=== PATIENT | female | born 1975 | race Two or more races ===

== ENCOUNTER 2023-12-19 17:54 | Emergency (ER) | payer MEDICAID, SELFPAY ==
[2023-12-19 18:25] VITALS: BP 114/78; PULSE 99; RESP 18; TEMP 37.6; O2SAT 95; BMI 32.1
--- NOTE | 2023-12-19 18:29 | PD.EDRME ---
Rapid Medical Screening Exam [facility] Arrival date/time: 12/19/23 17:54 48-year-old female with a history of hyperlipidemia hypertension hypothyroidism type 2 diabetes presents to the emergency room with a chief complaint of 10 out of 10 epigastric pain that radiates to the right upper quadrant. Patient states she had a cholecystectomy after there was obstruction. She was seen at her [facility] in which they removed the stent yesterday. Patient states that since removal of the stent she has had fever chills and abdominal pain I have greeted and performed a focused initial assessment of this patient. A comprehensive ED assessment and evaluation of the patient, analysis of all test results, and completion of the medical decision making process will be conducted by additional ED providers. Chief Complaint: Chest Pain Vital signs: Vital Signs Temperature 99.7 F 12/19/23 18:25 Pulse Rate 99 12/19/23 18:25 Respiratory Rate 18 12/19/23 18:25 Blood Pressure 114/78 12/19/23 18:25 Pulse Oximetry (%) 95 12/19/23 18:25 Oxygen Delivery Method Room Air 12/19/23 18:25 Vital signs reviewed by provider: Yes
--- NOTE | 2023-12-19 18:39 | EKG_ITS ---
[facility] Test Date: 2023-12-19 Pat Name: CHRISTA GOLDSMITH Department: Room: - Gender: Female [employer]: : [id number] Requested By: Chuck Tidwell Order Number: [id number] Reading MD: Chuck Tidwell Measurements Intervals [place] Rate: 100 P: 34 NE: 161 QRS: -5 QRSD: 110 T: 29 QT: 325 QTc: 419 Interpretive Statements SINUS TACHYCARDIA LOW QRS VOLTAGE IN PRECORDIAL LEADS [QRS DEFLECTION < 1.0 mV IN CHEST LEADS] ABNORMAL RHYTHM ECG Compared to ECG 08/26/2023 08:51:39 Low QRS voltage now present Sinus rhythm no longer present /store/S0/[id number]/[id number].pdf
--- NOTE | 2023-12-19 18:39 | XR_ITS ---
Examination: CT abdomen and pelvis without contrast. Coronal 3-D reconstructions. Sagittal 2-D reconstructions. Date and time of exam:December 19, 20232026 hrs. Comparison August 26, 2023 Indications: Abdominal pain chills and fever today CTDI: vol (mGy): 11.01 DLP: (mGycm): 704 Technique: Axial images of the abdomen have been obtained, 3 mm slice thickness Intravenous contrast material has not been administered. Low dose protocols were performed. One or more of the following dose reduction techniques were used; automated exposure control, adjustment of the mA and/or KV according to patient size, use of iterative reconstruction technique. Findings: No focal liver or splenic lesion, hepatomegaly 19 cm splenomegaly 13 cm Lung bases are clear No pancreatic or adrenal mass No renal or ureteral calculi, no hydronephrosis Aorta normal size No pericecal inflammatory change No bowel obstruction No diverticulitis Anteverted uterus, no pelvic mass Urinary bladder intact Osseous structures intact Impression: No renal or ureteral calculi, no hydronephrosis No CT findings of appendicitis bowel obstruction or diverticulitis No abdominal or pelvic abscess
[2023-12-19 19:36] LABS: Basophils % (Auto) 0 % (0-2.5); Eosinophils # (Auto) 0.1 Thou/mm3 (0.0-0.5); Eosinophils % (Auto) 1 % (0-10); Hematocrit 32.2 % (36.0-46.0); Hemoglobin 10.1 g/dL (12.0-16.0); Immature Granulocytes % (Auto) 0 % (0-0); Immature Granulocytes Auto 0.02 Thou/mm3 (0.00-0.00); Lymphocytes # (Auto) 0.7 Thou/mm3 (1.0-4.8); Lymphocytes % (Auto) 8 % (10-50); Mean Corpuscular HGB Conc 31.4 g/dl (31.0-37.0); Mean Corpuscular Hemoglobin 23.7 pg (25.0-35.0); Mean Corpuscular Volume 75 fL (80-100); Monocytes # (Auto) 0.7 Thou/mm3 (0.0-0.8); Monocytes % (Auto) 8 % (0-12); Neutrophils # (Auto) 6.7 Thou/mm3 (1.8-7.7); Neutrophils % (Auto) 83 % (37-80); Nucleated Red Blood Cell % 0 /100 WBC (0); Platelet Count 280 Thou/mm3 (140-440); RDW Standard Deviation 39.9 fL (36.4-46.3); Red Blood Count 4.27 Miln/mm3 (4.00-5.20); White Blood Count 8.1 Thou/mm3 (3.6-11.0)
[2023-12-19 19:39] LABS: Collection Type, Urine Clean Catch
[2023-12-19 19:51] LABS: B-Type Natriuretic Peptide 57 pg/mL (0-100)
[2023-12-19 19:53] LABS: Alanine Aminotransferase 477 U/L (10-49); Albumin, Serum 4.3 gm/dL (3.5-5.0); Albumin/Globulin Ratio 1.3 (1.2-2.2); Alkaline Phosphatase 367 U/L (46-116); Anion Gap 7 (7-16); Aspartate Amino Transferase 204 U/L (0-34); BUN/Creatinine Ratio 9 Ratio (12-20); Blood Urea Nitrogen 7 mg/dL (9-23); Calcium 9.9 mg/dL (8.3-10.6); Calcium (Corrected) 9.9 mg/dL (8.5-10.1); Carbon Dioxide 24.8 mMol/L (20.0-31.0); Chloride 102 mMol/L (98-107); Creatinine (Component) 0.8 mg/dL (0.6-1.3); Estimated Creatinine Clearance 101.8 mL/min (>60); Globulin 3.2 gm/dL (2.3-3.5); Glucose 283 mg/dL (74-106); Lipase 37 U/L (12-53); Osmolality,Calculated 276 (275-295); Potassium 3.7 mMol/L (3.4-5.1); Sodium 134 mMol/L (136-145); Total Protein 7.5 gm/dL (5.7-8.2); Troponin I < 0.002 ng/mL (0.0-0.045); eGFR > 60 See Note
[2023-12-19 20:03] LABS: HCG Qualitative,Urine Negative
[2023-12-19 20:07] LABS: Bacteria,Urine Rare; Bilirubin,Urine 1+ (Negative); Blood,Urine Negative (Negative); Clarity,Urine Clear (Clear/Hazy); Color,Urine Yellow (Lt Yel-Yel); Glucose, Urine 4+ (Negative); Ketones,Urine 1+ (Negative); Leukocyte Esterase,Urine Negative (Negative); Nitrite,Urine Negative (Negative); Protein,Urine 1+ (Neg - Trace); RBC,Urine 4 /hpf (0-3); Specific Gravity,Urine 1.034 (1.001-1.035); Squamous Epithelial Cell,Urine < 1 /hpf (0-5); WBC,Urine 1 /hpf (0-5)
[2023-12-19 22:32] VITALS: BP 116/77; PULSE 100; RESP 18; TEMP 37.6; O2SAT 95
[2023-12-19 23:37] LABS: Troponin I < 0.002 ng/mL (0.0-0.045)
--- NOTE | 2023-12-20 | XR_ITS ---
MRI abdomen, without contrast. MRCP Date and time of exam: December 20, 2023 0726 hours INDICATIONS: Epigastric pain, postcholecystectomy, post stent placement Technique: Multiple axial and coronal images of the abdomen have been obtained with the Siemens 1.5T MRI scanner. Images obtained included T1 weighted transverse images, T2-weighted transverse images, T2-weighted transverse images fat-suppressed, T2 weighted haste fat suppressed transverse images, T1 weighted images, in and out of phase images, T2-weighted coronal images, breath hold, T2 weighted haze coronal images as well as T2 weighted coronal thick slab images, MRCP. Findings: Hepatomegaly 19 cm Absent gallbladder Common hepatic duct 4 mm No common hepatic or common bile duct stones Negative for pancreatitis Pancreatic duct is not dilated Spleen is not enlarged No hydronephrosis Aorta normal size IMPRESSION: No common hepatic or common bile duct stones noted
--- NOTE | 2023-12-20 01:17 | XR_ITS ---
Examination: Abdomen sonogram, Limited Date and time of exam: December 20, 2023 0259 hrs. Indication: Chest pain epigastric pain beginning 2 days ago, history stone in the common bile duct removed 3 days ago with stent placement Technique: Real-time lowe scale transabdominal sonographic images of the upper abdomen obtained. Findings: Absent gallbladder Common bile duct 0.9 cm probable stent Pancreatic head 3.1 cm Liver 21.76 fatty infiltration no focal liver lesions Normal hepatopedal portal venous flow Patent IVC Impression: Echogenicity is present in the enlarged common bile duct Recommend MRCP follow-up to assess whether there are stones in addition to a stent in the common bile duct
[2023-12-20 01:38] VITALS: BP 106/65; PULSE 83; RESP 17; TEMP 37.5; O2SAT 96
[2023-12-20 03:36] VITALS: BP 114/78; PULSE 73; RESP 18; TEMP 37.1; O2SAT 96
--- NOTE | 2023-12-20 04:31 | PRELIM_ITS ---
Right upper quadrant abdominal ultrasound with doppler and wave doppler spectral analysis. November at 0259 hours Clinical history: Rule out retained stone. Technique: Grayscale and color flow i mages of the right upper quadrant are provided. Hepatic and portal veins were also imaged with color flow images. Comparison: No prior study is available for comparison. Findings:The liver is enlarged a nd demonstrates increased echogenicity. No intrahepatic biliary ductal dilatation. Status post cholec ystectomy. The common bile duct is dilated in caliber at 8.7 mm. Stone versus stent within the CBD. T he pancreas is unremarkable to the extent visualized. The right kidney is within normal limits. There is no hydronephrosis and the corticomedullary differentiation is maintained.The portal vein is paten t with hepatopetal flow and normal wave Doppler spectral analysis.The hepatic veins are patent.Impres david:Stone versus stent within the CBD, consider correlation with MRCP and/or CT.Hepatomegaly associa lizzette with liver steatosis is suspicious for steatohepatitis. Report Electronically Signed By: Suleman Apodaca 12/20/2023 4:30:14 AM [EST]
[2023-12-20 05:49] VITALS: BP 122/70; PULSE 83; RESP 19; TEMP 36.6; O2SAT 95
--- NOTE | 2023-12-20 06:46 | PD.EDADDENDU ---
Emergency Room Addendum <Hafsa Scott - Last Filed: 12/20/23 10:48> Addendum Narrative: 0600: Care assumed from Dr. Crawford, the previous shift emergency physician. Past medical, surgical, social and family history reviewed. Vitals and home medications reviewed. Patient evidently had a cholecystectomy performed last year and today LFT's are elevated. MRCP is pending to rule out CBD stones. Please refer to the emergency department record for history and examination from initial visit.? Nursing notes reviewed by me. Vital signs reviewed by me. [place] medical records reviewed by me. RADIOLOGY Ordering Physician: Chuck Lai Date of Service: 12/20/23 Procedure(s): MR MRCP Accession Number(s): [id number] cc: Chuck Lai; Gonzales Wise MD; Adonis Schwarz MD~ MRI abdomen, without contrast. MRCP Date and time of exam: December 20, 2023 0726 hours INDICATIONS: Epigastric pain, postcholecystectomy, post stent placement Technique: Multiple axial and coronal images of the abdomen have been obtained with the Siemens 1.5T MRI scanner. Images obtained included T1 weighted transverse images, T2-weighted transverse images, T2-weighted transverse images fat-suppressed, T2 weighted haste fat suppressed transverse images, T1 weighted images, in and out of phase images, T2-weighted coronal images, breath hold, T2 weighted haze coronal images as well as T2 weighted coronal thick slab images, MRCP. Findings: Hepatomegaly 19 cm Absent gallbladder Common hepatic duct 4 mm No common hepatic or common bile duct stones Negative for pancreatitis Pancreatic duct is not dilated Spleen is not enlarged No hydronephrosis Aorta normal size IMPRESSION: No common hepatic or common bile duct stones noted Dictated By: Adonis Schwarz MD Signed By: <Electronically signed by Adonis Schwarz MD in OV> 12/20/23 0936 <Zhang Dickinson MD - Last Filed: 12/20/23 10:54> Addendum Narrative: 0600: Care assumed from Dr. Crawford, the previous shift emergency physician. Past medical, surgical, social and family history reviewed. Vitals and home medications reviewed. Patient evidently had a cholecystectomy performed last year and today LFT's are elevated. MRCP is pending to rule out CBD stones. Please refer to the emergency department record for history and examination from initial visit.? Patient was signed out 0600 hrs. as someone with epigastric pain who had an ultrasound with and a previous cholecystectomy. A review of the chart reveals patient has a mild anemia of 10.1 which is microcytic indices with a MCV of 75. AST was 204 ALT was 477. Total bilirubin was 1.0. Alkaline phosphatase was elevated 367. Note a noncontrast CT of the abdomen pelvis came back negative urine is not clean-catch specimen with a specific already of 1034 and there is 4+ glucose present and obviously the patient needs better glycemic control. Hepatitis panel came back negative CT scan did comment on the hip hepatomegaly of 19 cm and splenomegaly of 13 etiology unknown. Otherwise the CT report was negative. Had a discussion with the patient at 1045 hrs. explained the results and told her she needs to follow with a regular doctor to address the enlarged liver and spleen and the elevated transaminases. Patient understands will follow-up. Also knows return if getting worse in any way. Notes the time of discharge patient is soft and benign belly vital signs are stable and patient is comfortable. Nursing notes reviewed by me. Vital signs reviewed by me. [place] medical records reviewed by me. RADIOLOGY Ordering Physician: Chuck Lai Date of Service: 12/20/23 Procedure(s): MR MRCP Accession Number(s): [id number] cc: Chuck Lai; Gonzales Wise MD; Adonis Schwarz MD~ MRI abdomen, without contrast. MRCP Date and time of exam: December 20, 2023 0726 hours INDICATIONS: Epigastric pain, postcholecystectomy, post stent placement Technique: Multiple axial and coronal images of the abdomen have been obtained with the Siemens 1.5T MRI scanner. Images obtained included T1 weighted transverse images, T2-weighted transverse images, T2-weighted transverse images fat-suppressed, T2 weighted haste fat suppressed transverse images, T1 weighted images, in and out of phase images, T2-weighted coronal images, breath hold, T2 weighted haze coronal images as well as T2 weighted coronal thick slab images, MRCP. Findings: Hepatomegaly 19 cm Absent gallbladder Common hepatic duct 4 mm No common hepatic or common bile duct stones Negative for pancreatitis Pancreatic duct is not dilated Spleen is not enlarged No hydronephrosis Aorta normal size
--- NOTE | 2023-12-20 07:12 | PC.NURSE ---
Received report from Enoc AMARAL and assumed care of patient. Patient states that her pain is 7/10 and that she is really itchy which she states started about 1 hour ago. Informed ER provider and received verbal order for Benadryl 25mg IV.
[2023-12-20 08:06] VITALS: BP 115/77; PULSE 81; RESP 16; TEMP 36.8; O2SAT 98
[2023-12-20] MEDS: DiphenhydrAMINE ELIX 25 MG/10 ML UDC 50 MG PO (08:11)
[2023-12-20 08:35] LABS: Hepatitis A Antibody IgM Non Reactive (Non React); Hepatitis B Core Antibody IgM Non Reactive (Non React); Hepatitis B Surface Antigen Non Reactive (Non React); Hepatitis C Antibody Non Reactive (Non React)
[2023-12-20 09:59] VITALS: BP 114/75; PULSE 74; RESP 19; TEMP 36.7; O2SAT 97
--- NOTE | 2023-12-20 10:56 | PD.EDADDENDU ---
Emergency Room Addendum Addendum Narrative: Also forgot to mention in the previous addendum added anemia workup labs were added on.
--- NOTE | 2023-12-20 11:02 | PC.NURSE ---
Patient states pain 8/10. Received verbal order from ER provider for 5mg morphine IM.
[2023-12-20] MEDS: MORPHINE SULF INJ 10 MG/ML VIAL 5 MG IM (11:12)
[2023-12-20 11:13] VITALS: BP 115/57; PULSE 55; RESP 18; TEMP 37.2; O2SAT 94
[2023-12-20 12:06] LABS: Ferritin 22 ng/mL (7.3-270.7); Iron 22 mcg/dL (50-170); Total Iron Binding Capacity 333 mcg/dL (250-425)
[2023-12-20 12:17] LABS: Folate 13.76 ng/mL (>5.38); Vitamin B12 417 pg/mL (211-911)
== END 2023-12-20 12:00 | disposition home or self-care (01) ==
PROVIDERS: Emergency Medicine; Nurse Practitioner Family; Emergency Provider Emergency Medicine; PCP Family Medicine
DX: R10.13 Epigastric pain (principal); D64.9 Anemia, unspecified; R74.8 Abnormal levels of other serum enzymes; R16.2 Hepatomegaly with splenomegaly, not elsewhere classified
CPT/HCPCS: 36415; 74176; 76705; 80053; 80074; 81001; 81025; 82607; 82728; 82746; 83540; 83550; 83690; 83880; 84484; 85025; 87086; 93005; 96372; 99284; J2270; S8037; 74181; A9270

== ENCOUNTER → 2024-10-22 | Outpatient (CLI) | payer MEDICAID, SELFPAY ==
--- NOTE | 2024-10-22 12:30 | XR_ITS ---
Examination: Breast ultrasound, unilateral, left Date and time of exam: October 22, 2024 1305 hours INDICATIONS: Breast cystic disease, 3:00 cyst 6 mm, 6 mm on left breast sonogram August 08, 2023 Technique: Real-time lowe scale ultrasonographic imaging performed left breast including all 4 quadrants as well as nipple retroareolar and axillary region. Findings: 2:00 cyst 4 x 6 mm 3:00 cyst 3 x 3 mm 3:00 cyst 4 x 4 millimeter No solid nodules IMPRESSION: BI-RADS Category 2: Benign findings
== END | disposition home or self-care (01) ==
PROVIDERS: PCP Advanced Practice Midwife; Referring Provider Advanced Practice Midwife; Visit Provider Advanced Practice Midwife
DX: N60.02 Solitary cyst of left breast (principal)
CPT/HCPCS: 76641